=== PATIENT | male | born 1995 | race Two or more races ===

== ENCOUNTER 2021-05-26 17:42 | Emergency (ER) | payer MEDICAID ==
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
== END 2021-05-26 22:00 ==
LOC: JD.ED 17:42
DX: F39 Unspecified mood [affective] disorder (principal); Z20.822 Contact with and (suspected) exposure to COVID-19; Z72.0 Tobacco use
CPT/HCPCS: 36415; 80053; 80143; 80179; 80306; 80307; 84443; 85007; 85027; 93005; 93010; 99284; 99285-25; U0002